=== PATIENT | male | born 1960 | race Caucasian/White ===

== ENCOUNTER 2017-12-14 20:18 | Emergency (ER) | payer BC, OTHER ==
[2017-12-14 20:31] VITALS: BP 142/92; PULSE 63; TEMP 97.8; BMI 25.0
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
== END 2017-12-14 22:02 | disposition home or self-care (01) ==
LOC: FER 20:18
DX: S60.012A Contusion of left thumb without damage to nail, initial encounter (principal); V43.52XA Car driver injured in collision with other type car in traffic accident, initial encounter; Y93.89 Activity, other specified; Y92.410 Unspecified street and highway as the place of occurrence of the external cause; E11.9 Type 2 diabetes mellitus without complications; E78.00 Pure hypercholesterolemia, unspecified
CPT/HCPCS: 73140-TC-LT-FY; 99282-25